=== PATIENT | male | born 1980 | race Two or more races ===

== ENCOUNTER 2017-03-13 17:48 | Emergency (ER) | payer OTHER ==
[2017-03-13 18:32] VITALS: BP 140/64
== END 2017-03-13 18:32 | disposition home or self-care (01) ==
LOC: ED 17:48
DX: S61.411A Laceration without foreign body of right hand, initial encounter (principal); W25.XXXA Contact with sharp glass, initial encounter; Y93.89 Activity, other specified; Y99.8 Other external cause status; Y92.89 Other specified places as the place of occurrence of the external cause